=== PATIENT | female | born 2000 | race African-American/Black ===

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

== ENCOUNTER 2020-05-31 23:55 | Emergency (ER) | payer OTHER ==
[~2020-05-31] VITALS: Ht 167.6 cm; Wt 81.6 kg
[2020-06-01 01:42] VITALS: BP 116/51; TEMP 98.7
== END 2020-06-01 01:42 | disposition home or self-care (01) ==
LOC: ED 23:55
DX: T78.49XA Other allergy, initial encounter (principal); T78.1XXA Other adverse food reactions, not elsewhere classified, initial encounter
CPT/HCPCS: 96372; 99283; J1100; J1200

== ENCOUNTER 2021-06-07 13:42 | Emergency (ER) | payer OTHER ==
[~2021-06-07] VITALS: Ht 167.6 cm; Wt 90.7 kg
[2021-06-07 14:50] LABS: PLATELET COUNT 303 K/uL (152-353)
[2021-06-07 15:03] LABS: POTASSIUM 4.5 mmol/L (3.6-5.2)
[2021-06-07 15:51] VITALS: BP 123/78; TEMP 97.8
== END 2021-06-07 15:51 | disposition home or self-care (01) ==
LOC: ED 13:42
PROVIDERS: Hospitalist
DX: K29.70 Gastritis, unspecified, without bleeding (principal); K59.09 Other constipation
CPT/HCPCS: 36415; 80053; 81000; 81025; 83690; 85027; 99283

== ENCOUNTER 2021-08-19 11:48 | Emergency (ER) | payer OTHER ==
[~2021-08-19] VITALS: Ht 167.6 cm; Wt 90.7 kg
[2021-08-19 11:57] VITALS: BP 136/70; TEMP 99.5
[2021-08-19 12:33] LABS: PLATELET COUNT 261 K/uL (152-353)
[2021-08-19 12:38] LABS: POTASSIUM 3.5 mmol/L (3.6-5.2)
== END 2021-08-19 15:29 | disposition home or self-care (01) ==
LOC: ED 11:48
PROVIDERS: Emergency Medicine Emergency Medical Services
DX: B34.9 Viral infection, unspecified (principal); Z20.822 Contact with and (suspected) exposure to COVID-19
CPT/HCPCS: 80053; 83690; 85027; 87635; 96360; 96374; 99284; J1885; J2405; U0003